=== PATIENT | female | born 1950 | race Two or more races ===

== ENCOUNTER 2020-03-28 15:36 | Inpatient (IN) | payer OTHER ==
[~2020-03-28] VITALS: Ht 160 cm; Wt 69.4 kg
== END 2020-04-22 19:23 | disposition home or self-care (01) | DRG 331 ==
LOC: O/R 04-19 06:34 → SURH 04-19 06:34
PROVIDERS: ADMIT Colon & Rectal Surgery; ATTEND Colon & Rectal Surgery
PROC: 0DBN4ZZ Excision of Sigmoid Colon, Percutaneous Endoscopic Approach (ICD-10-PCS; 2020-04-19)
PROC: 0DJD8ZZ Inspection of Lower Intestinal Tract, Via Natural or Artificial Opening Endoscopic (ICD-10-PCS; 2020-04-19)
PROC: 0DTP4ZZ Resection of Rectum, Percutaneous Endoscopic Approach (ICD-10-PCS; principal; 2020-04-19 20:30)
DX: K57.30 Diverticulosis of large intestine without perforation or abscess without bleeding (principal)